=== PATIENT | male | born 1965 | race Two or more races ===

== ENCOUNTER 2025-04-17 07:45 | Day surgery (SDC) | payer BC, SELFPAY ==
--- NOTE | 2025-04-10 11:29 | EKG_ITS ---
[facility] Test Date: 2025-04-10 Pat Name: CALLIE DIEZ Department: Room: - Gender: Male [employer] Handler: YAZ : 1965 Requested By: Casper Diamond Order Number: [id number] Reading MD: Casper Diamond Measurements Intervals Johnson Rate: 66 P: 27 OR: 148 QRS: 40 QRSD: 95 T: 45 QT: 390 QTc: 411 Interpretive Statements SINUS RHYTHM POSSIBLE RIGHT VENTRICULAR CONDUCTION DELAY [RSR (QR) IN V1/V2] No previous ECG available for comparison /store/S0/[id number].pdf
[2025-04-10 11:39] VITALS: BMI 30.4
[2025-04-10 12:31] LABS: Collection Type, Urine Clean Catch; Squamous Epithelial Cell,Urine 0 /hpf (0-5)
[2025-04-10 12:38] LABS: Basophils # (Auto) 0.0 Thou/mm3 (0.0-0.2); Basophils % (Auto) 1 % (0-2.5); Eosinophils # (Auto) 0.1 Thou/mm3 (0.0-0.5); Eosinophils % (Auto) 2 % (0-10); Hematocrit 41.0 % (41.0-53.0); Hemoglobin 13.8 g/dL (13.5-16.0); Immature Granulocytes Auto 0.01 Thou/mm3 (0.00-0.00); Lymphocytes # (Auto) 1.5 Thou/mm3 (1.0-4.8); Lymphocytes % (Auto) 23 % (10-50); Mean Corpuscular HGB Conc 33.7 g/dl (31.0-37.0); Mean Corpuscular Hemoglobin 28.3 pg (25.0-35.0); Mean Corpuscular Volume 84 fL (80-100); Monocytes # (Auto) 0.6 Thou/mm3 (0.0-0.8); Monocytes % (Auto) 9 % (0-12); Neutrophils # (Auto) 4.2 Thou/mm3 (1.8-7.7); Neutrophils % (Auto) 65 % (37-80); Nucleated Red Blood Cell # 0.00 Thou/mm3 (0.00-0.00); Nucleated Red Blood Cell % 0 /100 WBC (0); Platelet Count 252 Thou/mm3 (140-440); RDW Standard Deviation 43.1 fL (35.1-43.9); Red Blood Count 4.87 Miln/mm3 (4.50-5.90); White Blood Count 6.4 Thou/mm3 (3.8-10.6)
[2025-04-10 12:41] LABS: Bilirubin,Urine Negative (Negative); Blood,Urine Negative (Negative); Clarity,Urine Clear (Clear/Hazy); Color,Urine Lt-Yellow (Lt Yel-Yel); Glucose, Urine Negative (Negative); Ketones,Urine Negative (Negative); Leukocyte Esterase,Urine Negative (Negative); Nitrite,Urine Negative (Negative); PH,Urine 6.5 (5.0-7.0); Protein,Urine Trace (Neg - Trace); RBC,Urine 3 /hpf (0-3); Specific Gravity,Urine 1.024 (1.001-1.035); Urobilinogen,Urine Negative mg/dL (0.0-1.0); WBC,Urine 1 /hpf (0-5)
[2025-04-10 12:51] LABS: Alanine Aminotransferase 35 U/L (10-49); Albumin, Serum 4.2 gm/dL (3.4-4.8); Albumin/Globulin Ratio 1.5 (1.2-2.2); Alkaline Phosphatase 94 U/L (46-116); Anion Gap 9 (7-16); Aspartate Amino Transferase 25 U/L (0-34); BUN/Creatinine Ratio 8 Ratio (12-20); Bilirubin,Total 0.6 mg/dL (0.3-1.2); Blood Urea Nitrogen 8 mg/dL (9-23); Calcium 9.1 mg/dL (8.3-10.6); Calcium (Corrected) 9.1 mg/dL (8.5-10.1); Carbon Dioxide 24.7 mMol/L (20.0-31.0); Chloride 107 mMol/L (98-107); Creatinine (Component) 1.0 mg/dL (0.6-1.3); Estimated Creatinine Clearance 85.9 mL/min (>60); Globulin 2.8 gm/dL (2.3-3.5); Glucose 103 mg/dL (74-106); Osmolality,Calculated 279 (275-295); Potassium 4.0 mMol/L (3.4-5.1); Sodium 141 mMol/L (136-145); Total Protein 7.0 gm/dL (5.7-8.2); eGFR > 60 See Note
[2025-04-17 08:15] VITALS: BP 158/76; PULSE 69; RESP 20; TEMP 37.1; O2SAT 95; BMI 31.1
--- NOTE | 2025-04-17 08:45 | CHAP ---
Visited with patient and gave comfort, encouragement and prayer.
--- NOTE | 2025-04-17 08:47 | ESHP_ITS ---
RE: CALLIE DIEZ : 1965 DATE OF ADMISSION: 04/16/2025 HISTORY OF PRESENT ILLNESS: The patient is a 59-year-old gentleman who has had a history of elevated PSA. He is [place]-speaking. His PSA is 4.8. Percentage free PSA is 9.2. He has nocturia three to four times. He has a history of Peyronie's disease. PAST SURGICAL HISTORY: Cholecystectomy. SOCIAL HISTORY: He has 6 children. ALLERGIES: NONE KNOWN. PAST MEDICAL HISTORY: He has a history of hypertension. No history of diabetes mellitus. HOME MEDICATIONS: He takes tamsulosin 0.4 mg daily. PHYSICAL EXAMINATION: HEENT: Normal. NECK: Supple. LUNGS: Clear. CARDIOVASCULAR: Heart sounds are normal. ABDOMEN: Soft without any organomegaly. No guarding. No rigidity. EXTREMITIES: Normal. GENITOURINARY: Phallus is normal. Testes are down in the scrotum. Rectal examination reveals moderately enlarged smooth prostate. IMPRESSION: 1. Prostatism. 2. Prostatic obstruction. 3. Elevated PSA of 4.8. PLAN: Cystoscopy and transrectal prostatic ultrasound with ultrasound-guided prostatic needle biopsy. Planned procedure, risks and complications have been discussed with the patient. The patient has understood them and agreed to proceed. DT: 11:58:33 TT: 12:19:00 Ref: [id number] - TID: [id number]
--- NOTE | 2025-04-17 10:00 | XR_ITS ---
Examination: Transrectal prostate sonography Date and time: April 17, 2025 1022 hours INDICATIONS: Prostate biopsies by physician in the OR today, ultrasound guidance TECHNIQUE AND FINDINGS: Multiple transvaginal prostate sonographic images Prostate volume 73.62 cc IMPRESSION: Transrectal prostate sonography for prostate biopsies
[2025-04-17 10:44] VITALS: BP 131/84; PULSE 60; RESP 17; TEMP 36.9; O2SAT 100
--- NOTE | 2025-04-17 10:44 | SUR.PHASEII ---
1044 Patient arrived to recovery resting comfortably in [facility], drowsy and talking with staff, breathing unlabored, vital signs stable, denies pain and nausea, report received from Roland CASANOVA and Amor CRUZ/Dr. Kramer
[2025-04-17 10:49] VITALS: BP 129/86; PULSE 54; RESP 15; O2SAT 97
[2025-04-17 10:54] VITALS: BP 134/90; PULSE 53; RESP 15; O2SAT 96
[2025-04-17 10:59] VITALS: BP 132/88; PULSE 53; RESP 16; O2SAT 98
--- NOTE | 2025-04-17 11:11 | ESOP_ITS ---
RE: CALLIE DIEZ : 1965 DATE OF OPERATION: 04/17/2025 PREOPERATIVE DIAGNOSES: Prostatism, prostatic obstruction, and elevated PSA of 4.8. POSTOPERATIVE DIAGNOSES: Prostatism, prostatic obstruction, and elevated PSA of 4.8. PROCEDURE: Cystoscopy, urethral dilatation, transrectal prostatic ultrasound with ultrasound-guided prostatic needle biopsy. ANESTHESIA: Monitored anesthesia by Dr. Kramer. INDICATION: The patient is a 59-year-old gentleman with elevated PSA of 4.8. He has nocturia 3-4 times. He has a history of Peyronie's disease. Rectally, he has a moderately enlarged prostate without any hard nodules. He is now scheduled to have cystoscopy and transrectal prostatic ultrasound with ultrasound-guided prostatic needle biopsy. Planned procedures, risks, and complications have been discussed with the patient. The patient understood them and agreed to proceed. DESCRIPTION OF PROCEDURE: After the patient was brought to the operating table under adequate monitored anesthesia given by Dr. Kramer, he was placed in dorsal lithotomy position. Parts were prepped and draped in the usual fashion. Cystoscopy was then carried out, which revealed adequate urethral meatus, normal-appearing urethra. Prostate is moderately enlarged, bilobed. Residual urine was 3 ounces, yellow and clear. There are no intravesical stones or tumors. Bladder mucosa is minimally trabeculated. The scope was then withdrawn. The urethra was dilated. The patient was then turned in the left lateral position. Transrectal prostatic ultrasound was carried out. Biopsies were obtained from both lobes using ultrasound guidance. Prostatic volume was measured at 73.6 cubic cm. The patient tolerated the entire procedure well and left the room in good condition. DT: 10:54:59 TT: 11:09:00 Ref: [id number] - TID: [id number]
[2025-04-17 11:14] VITALS: BP 153/98; PULSE 64; RESP 19; TEMP 36.8; O2SAT 97
--- NOTE | 2025-04-17 11:34 | SUR.PHASEII ---
1134 patient meets discharge criteria from recovery, awake and alert, breathing unlabored, vital signs stable, denies pain and nausea, assisted with dressing into his clothing by his , discharge instructions given to patient and patients with the assistance of the [facility] risk and insurance manager Sofia, patients signed discharge instructions. Patient given all his belongings prior to discharge, transported via wheelchair and left in a private vehicle.
== END 2025-04-17 11:34 | disposition home or self-care (01) ==
PROVIDERS: Anesthesiology; PCP Family Medicine; Referring Provider Surgery; Visit Provider Surgery
PROC: 0TJB8ZZ Inspection of Bladder, Via Natural or Artificial Opening Endoscopic (ICD-10-PCS; CPT 52000; principal; 2025-04-17 10:00)
PROC: (CPT 55700; 2025-04-17 10:00)
DX: N40.1 Benign prostatic hyperplasia with lower urinary tract symptoms (principal); N13.8 Other obstructive and reflux uropathy; R35.1 Nocturia; N48.6 Induration penis plastica; Z01.810 Encounter for preprocedural cardiovascular examination; I10 Essential (primary) hypertension
CPT/HCPCS: 52281; 55700; 36415; 76942; 80053; 81001; 85025; 87086; 93005; A4217; A4649; J0131; J0694; J2704; J3010; J3490

== ENCOUNTER → 2025-06-14 | Outpatient (BNVA) | payer BC, SELFPAY | END | disposition home or self-care (01) | PROVIDERS: PCP Nurse Practitioner Family; Referring Provider Nurse Practitioner Family; Visit Provider Urology | DX: R97.20 Elevated prostate specific antigen [PSA] (principal); N48.6 Induration penis plastica; E66.9 Obesity, unspecified; Z68.30 Body mass index [BMI] 30.0-30.9, adult | CPT/HCPCS: 81003; 99212; G0463 ==